=== PATIENT | female | born 1980 ===

== ENCOUNTER 2018-07-31 15:10 | Outpatient (CLI) | payer OTHER | END 2018-07-31 15:20 | disposition home or self-care (01) | LOC: LAB 15:10 | DX: J11.1 Influenza due to unidentified influenza virus with other respiratory manifestations (principal) ==

== ENCOUNTER → 2019-06-08 17:23 | Outpatient (CLI) | payer OTHER | END | disposition home or self-care (01) | LOC: LAB 17:23 | DX: J11.1 Influenza due to unidentified influenza virus with other respiratory manifestations (principal); J20.0 Acute bronchitis due to Mycoplasma pneumoniae ==